=== PATIENT | female | born 1955 | race Caucasian/White ===

== ENCOUNTER 2025-02-27 02:23 | Emergency (ER) | payer MEDICARE, OTHER, SELFPAY ==
[2025-02-27 02:23] VITALS: BMI 25.5
[2025-02-27 02:27] VITALS: BP 157/90
[2025-02-27 03:16] VITALS: BP 158/85
[2025-02-27 03:24] LABS: % Basophils 0.7 % (0-2); % Eosinophils 1.5 % (0-6); % Lymphocytes 36.5 % (20.5-51.1); % Monocytes 10.4 % (1.7-9.3); % Neutrophils 50.9 % (42.2-75.2); Absolute Eosinophils 0.1 10^3/uL (0-0.7); Absolute Lymphocytes 1.5 10^3/uL (1.2-3.4); Absolute Monocytes 0.4 10^3/uL (0.1-0.6); Absolute Neutrophils 2.1 10^3/uL (1.4-6.5); Mean Corp Hgb Conc. 34.2 g/dL (33.0-37.0); Mean Corpuscular Hgb 32.7 pg (27.0-31.0); Mean Corpuscular Volume 95.5 fL (81.0-99.0); Mean Platelet Volume 9.5 fL (7.4-10.4); Nucleated Red Blood Cells % 0 %; Platelet Count 203 10^3/uL (130-400); Red Blood Cell Count 3.98 10^6/uL (4.20-5.40); Red Cell Dist. Width 13.2 % (11.5-14.5); White Blood Cell Count 4.1 10^3/uL (4.8-10.8)
[2025-02-27 03:47] LABS: ALT (SGPT) 17 U/L (0-35); AST (SGOT) 21 U/L (14-36); Albumin 3.6 g/dl (3.5-5.0); Alkaline Phosphatase 54 U/L (38-126); Blood Urea Nitrogen 24 mg/dl (7-17); Calcium 10.1 mg/dl (8.4-10.2); Carbon Dioxide 30 mmol/L (22-30); Chloride 106 mmol/L (98-107); Estimated Creatinine Clearance 48 ml/min; Glucose 99 mg/dl (70-99); Lipase 307 U/L (23-300); Potassium 3.9 mmol/L (3.5-5.1); Sodium 142 mmol/L (135-145); Total Bilirubin 0.3 mg/dl (0.2-1.3); Total Protein 5.9 g/dl (6.3-8.2); eGFR > 60.00
[2025-02-27 03:58] LABS: Troponin I < 0.012 ng/ml
--- NOTE | 2025-02-27 04:28 | ED.GENMED ---
History of Present Illness
General
Chief Complaint: Abdominal Symptoms
Source: patient and other (Boyfriend)
Time Seen by Provider: 02/27/25 04:21
History of Present Illness
History of Present Illness:
69-year-old female presents emergency department complaints of 'burning' that she first noted in her mouth and also in her throat and upper chest at 2 AM today. She said it seemed to be a lot more intense than any prior episodes of heartburn. She
now feels better. She denies diaphoresis, nausea, vomiting, dyspnea, fever, chills, abdominal pain, back pain, neck pain, jaw pain, or other complaints. She wanted to make sure this was not cardiac related. No prior cardiac history.
Past History
Past History
ED Past Medical History: Arrthythmia (Atrial fibrillation) and Other (Pneumonia GI bleed, colitis, ovarian cysts, arthritis)
ED Past Surgical History: Appendectomy, Tonsilectomy and Other (History of ovarian cyst surgery, and uterine polyp surgery, and rectal fissure surgery)
Social History
Tobacco: Non-smoker
Alcohol: Daily
Drug: None
Personal:
Living: alone
Employment: Employed
Family History
Family History: Sudden (Grandmother with diverticulitis ) and Other
Phy Exam
Physical Exam
Physical Exam:
GENERAL: Alert , in no apparent distress
EYE: pupils equal and reactive
NECK: Supple, no significant adenopathy.
ENT: o/p clr, mmm.
CARDIAC: Regular rate and rhythm .
LUNGS: Clear breath sounds bilaterally, no acute respiratory distress, no wheezes/rales/rhonchi
ABDOMEN: Soft, without focal tenderness, no r/g, no cvat
NEUROLOGICAL: Alert and oriented, no focal neuro deficits
SKIN: Warm and dry, skin intact.
MUSCULOSKELETAL: No edema, well perfused.
PSYCH: Normal and appropriate interaction.
Course
Orders/Labs/Results
Orders:
Orders
02/27/25 02:34
Electrocardiogram (*1) Urgent
Reason for Study: Abdominal Pain
EKG- Treatment ONCE
IV Insert/Care/Rem.- Treatment PRN
Straight cath- Treatment ONCE
02/27/25 03:15
Complete Blood Count/With Diff Urgent
Comprehensive Metabolic Panel Urgent
Lipase Urgent
Troponin I Urgent
02/27/25 04:30
Mag Hydrox/Al Hydrox/Simeth [Maalox] 30 ml Phenobarb/Hyoscy/Atropine/Scop [] 10 ml Viscous Lidocaine 2% [Xylocaine Viscous Cup] 10 ml PO NOW
02/27/25 04:38
Mag Hydrox/Al Hydrox/Simeth [Maalox] 30 ml .ROUTE .STK-MED ONE
Phenobarb/Hyoscy/Atropine/Scop [] 10 ml .ROUTE .STK-MED ONE
Viscous Lidocaine 2% [Xylocaine Viscous Cup] 15 ml .ROUTE .STK-MED ONE
02/27/25 06:07
Troponin I Urgent
Abnormal Lab Results
02/27/25
03:15
WBC 4.1 L 10^3/uL
(4.8-10.8)
RBC 3.98 L 10^6/uL
(4.20-5.40)
MCH 32.7 H pg
(27.0-31.0)
Monocytes % 10.4 H %
(1.7-9.3)
BUN 24 H mg/dl
(7-17)
Total Protein 5.9 L g/dl
(6.3-8.2)
Lipase 307 H U/L
(23-300)
02/27/25 03:15
02/27/25 03:15
Vital Signs
Initial and Last Documented VS:
Initial Vital Signs
Temp Pulse Resp BP Pulse Ox
97.9 F 102 20 157/90 95
02/27/25 02:27 02/27/25 02:27 02/27/25 02:27 02/27/25 02:27 02/27/25 02:27
Last Documented Vital Signs
Temp Pulse Resp BP Pulse Ox
98.5 F 86 20 147/85 99
02/27/25 06:57 02/27/25 06:57 02/27/25 06:57 02/27/25 06:57 02/27/25 06:57
*Critical Care Note
Total Time (30-74mins, 75-104mins- exclusive of procedures): Not Applicable
Update Note
Update Note:
Patient presents to the Emergency Department with burning of throat and upper
Number and Complexity of Problems Addressed at the Encounter
� Chronic conditions affecting care:
� Acute Exacerbation and/or Progression of Chronic Illness:
� Differential Diagnosis includes:
Amount and/or Complexity of Data to be Reviewed and Analyzed
� I performed an independent evaluation of and my interpretation is:
EKG: Read by me, normal sinus rhythm, normal axis, no acute ischemia
CT:
Xrays:
Laboratory Studies: Generally unremarkable, troponin negative
Other:
� Review of other/old records reveals:
� Clinical information was obtained by an independent historian:
� Prescriptions/Medications Considered but not given:
� Further testing considered but not performed:
Risk of Complications and/or Morbidity or Mortality of Patient Management
� Social determinants of health affecting care:
� Discussion with other providers (PCP, Hospitalists, Consultants, etc):
� Escalation of care including admission/observation vs risk of discharge considered:
ED Attending Note
-
Portions of this chart may have been created with voice recognition software.� Occasional wrong word or��sound alike� substitutions may have occurred due to the inherent limitations of voice recognition software.
Discharge Plan
Departure
Patient Disposition: Home (Routine Discharge)
Date of Disposition: 02/27/25
Time of Disposition: 07:02
Patient with high blood pressure during this ER visit?: Yes
Condition: Good
Discharge Problem:
Chest pain
Instructions: Acid reflux and GERD in adults, Chest pain, BLOOD PRESSURE
Prescriptions:
New
pantoprazole [Protonix] 40 mg tablet,delayed release (DR/EC)
40 mg PO DAILY Qty: 30 0RF
No Action
cyanocobalamin (vitamin B-12) 1,000 mcg Tablet
1,000 mcg PO DAILY
ascorbic acid (vitamin C) [Vitamin C] 500 mg Tablet
500 mg PO DAILY
ibuprofen 400 mg Tablet
400 mg PO Q6H PRN (Reason: mild pain)
cholecalciferol (vitamin D3) [Vitamin D3] 25 mcg (1,000 unit) Tablet
25 mcg PO DAILY
Referrals:
Kristina Kwok, DO [Family Provider] - Follow up in 2-3 days
Activity Restrictions/Additional Instructions:
IF YOU DEVELOP INCREASING NEW OR PERSISTENT PAIN, TROUBLE BREATHING, FEVER, SWEATINESS, VOMITING, JAW BACK OR SHOULDER PAIN, OR OTHER WORRISOME SIGNS, PLEASE RETURN TO THE ER IMMEDIATELY.
Interventions
Interventions:
*Risk Screen - Suicide Last Done: 02/27/25 02:27
*General Assessment Last Done: 02/27/25 02:27
*Neglect/Abuse Screening Last Done: 02/27/25 02:27
*ED- Fall Risk Assessment Last Done: 02/27/25 02:27
*ED COVID-19 Vaccine History Last Done: 02/27/25 02:27
MY-Exfsst-Xrwajhutxs Assessment Last Done: 02/27/25 06:57
Discharge Date and Time
Print Language: SCOTTISH
[2025-02-27] MEDS: MAALOX 50 PO (04:42)
[2025-02-27 06:45] LABS: Troponin I < 0.012 ng/ml
[2025-02-27 06:57] VITALS: BP 147/85
== END 2025-02-27 07:04 | disposition home or self-care (01) ==
LOC: EMR 02:23
PROVIDERS: EMERGENCY PHYSICIAN Emergency Medicine; FAMILY PHYSICIAN Family Medicine
DX: R07.9 Chest pain, unspecified (principal); I48.91 Unspecified atrial fibrillation; Z90.49 Acquired absence of other specified parts of digestive tract
CPT/HCPCS: 99284; 80053; 83690; 84484; 85025; 93005